=== PATIENT | female | born 2000 | race American Indian/Alaskan Native ===

== ENCOUNTER 2019-12-10 10:38 | Emergency (ER) | payer OTHER ==
--- NOTE | 2019-12-10 10:47 | Event Note ---
ED Screening Note ED Screening Note: vag bleed in preg This initial assessment/diagnostic orders/clinical plan/treatment(s) is/are subject to change based on patients health status, clinical progression and re- assessment by fellow clinical providers in the ED. Further treatment and workup at subsequent clinical providers discretion. Patient/guardian urged not to elope from the ED as their condition may be serious if not clinically assessed and managed. Initial orders include: omaira crabtree
[2019-12-10 12:27] LABS: Hematocrit 36.4 % (30.3-42.9); Hemoglobin 12.2 gm/dl (10.1-14.3); Mean Corpuscular HGB Conc 34 % (30-34); Mean Corpuscular Volume 85 fl (79-97); Platelet Count 321 K/mm3 (140-440); Red Blood Count 4.29 M/mm3 (3.65-5.03); Red Cell Distribution Width 15.8 % (13.2-15.2)
[2019-12-10 13:31] LABS: Bacteria,Urine 1+ /HPF (Negative); Bilirubin,Urine NEG (Negative); Blood,Urine LG (Negative); Color,Urine Yellow (Yellow); Mucus,Urine FEW /HPF; Protein,Urine <15 mg/dL mg/dL (Negative); Urobilinogen,Urine < 2.0 mg/dL (<2.0)
--- NOTE | 2019-12-10 13:36 | Emergency Department Report ---
ED Female HPI - General Chief complaint: Vaginal Bleeding Stated complaint: 5WKS PREG , BLEEDING Time Seen by Provider: 12/10/19 10:46 Source: patient Mode of arrival: Ambulatory Limitations: No Limitations - History of Present Illness Initial comments: 19 year old female presents to ED c/o vaginal bleeding. Patient reports that she is about 5 weeks based on her last MC which was October 30. Her first appointment is in 3 days. She states the bleeding started 3 days ago. She states initially it was light but then today was heavier with passage of single clot. She reports mild intermittent cramping for the past 3 days. She denies any abnormal discharge, abnormal passage of tissue, or UTI symptoms. She states she is rh negative. She is . She reports no other symptoms at this time. MD Complaint: vaginal bleeding -: days(s) (3) - Related Data Allergies Allergy/AdvReac Type Severity Reaction Status Date / Time No Known Allergies Allergy Unverified 12/10/19 10:39 ED Review of Systems ROS: Stated complaint: 5WKS PREG , BLEEDING Other details as noted in HPI Comment: All other systems reviewed and negative Constitutional: denies: chills, fever Gastrointestinal: abdominal pain. denies: nausea, vomiting, diarrhea, constipation, hematemesis, melena, hematochezia Genitourinary: other (vaginal bleeding) ED Past Medical Hx - Past Medical History Previous Medical History?: No - Surgical History Past Surgical History?: No - Social History Smoking Status: Never Smoker Substance Use Type: None ED Physical Exam - General Limitations: No Limitations General appearance: alert, in no apparent distress - Neck Neck exam: Present: normal inspection - Respiratory Respiratory exam: Present: normal lung sounds bilaterally. Absent: respiratory distress - GI/Abdominal GI/Abdominal exam: Present: soft, tenderness (mild LLQ without guarding or rebound). Absent: guarding, rebound - External exam: Present: normal external exam Speculum exam: Present: vaginal bleeding (mild ). Absent: vaginal discharge, cervical discharge, tissue, laceration Bi-manual exam: Present: adnexal tenderness (Left ). Absent: cervical motion tendernes, adnexal mass - Neurological Exam Neurological exam: Present: alert, oriented X3, CN II-XII intact - Psychiatric Psychiatric exam: Present: normal affect, normal mood - Skin Skin exam: Present: intact ED Course Vital Signs 12/10/19 12/10/19 12/10/19 10:41 13:21 15:02 Temperature 97.9 F 98.1 F Pulse Rate 67 57 L Respiratory 18 16 15 Rate Blood Pressure 131/43 104/43 O2 Sat by Pulse 100 100 Oximetry ED Medical Decision Making - Lab Data Result diagrams: 12/10/19 14:17 12/10/19 12:20 - Radiology Data Radiology results: report reviewed [facility] [address] [place] [address] Ultrasound Report Signed Patient: SANDY COHEN MR#: [id number] : 2000 Acct:[id number] Age/Sex: 19 / F ADM Date: 12/10/19 Loc: ED [address]: Ordering Physician: AL PENA Date of Service: 12/10/19 Procedure(s): US OB transvaginal Accession Number(s): [id number] cc: AL PENA Obstetrical ultrasound first trimester INDICATION: Vaginal bleeding and FINDINGS: A small gestational sac is present within the endometrial canal. A small yolk sac appears evident but no pole is identified at this time. The gestational sac measures about 5 mm which corresponds to 5 weeks and 2 days. The right ovary is normal. The left ovary measures 3.2 x 1.9 x 3.2 cm and contains a cystic 1.6 cm structure which may represent a corpus luteal cyst. No significant free pelvic fluid. IMPRESSION: Early intrauterine gestational sac without pole at this time. There does appear to be a small implant/subchorionic bleed measuring about 2.7 x 0.6 mm. Close ultrasound follow-up is suggested. Signer Name: Berhane Mcdaniels MD Signed: 12/10/2019 3:08 PM Workstation Name: [id number] Transcribed By: BC Dictated By: Berhane Mcdaniels MD Electronically Authenticated By: Berhane Mcdaniels MD Signed Date/Time: 12/10/19 1508 DD/ 1505 TD/TT: - Medical Decision Making Patient resting comfortably. No acute distress. She reported no worsening bleeding during her stay. Labs reviewed as well as ultrasound report. Quant measured at 442. Ultrasound shows a 5-week 2-day intrauterine gestational sac, no pole at this time, there is a small implantation/subchorionic bleed and radiologist recommend close ultrasound follow-up. Patient did get a RhoGam i njection today. Discussed lab results as well as ultrasound results with patient. Also discussed suspected diagnosis and tx plan. She has an appointment on the second which I recommend that she keeps. She was given a copy of the ultrasound results as well as a quant. Instructed patient to rest until her appointment, no sexual activity or strenuous activity. Informed patient that if her symptoms worsened and to return to the ER. Critical care attestation.: If time is entered above; I have spent that time in minutes in the direct care of this critically ill patient, excluding procedure time. ED Disposition Clinical Impression: Threatened miscarriage in early Disposition: DC-01 TO HOME OR SELFCARE Is pt being admited?: No Does the pt Need Aspirin: No Condition: Stable Instructions: Threatened Miscarriage (ED) Additional Instructions: Keep your appointment with OBGYN this week. I recommend rest, no sexual contact or strenous activity. I recommend tylenol for any pain. Return to ED if worse. Forms: Work/School Release Form(ED) Time of Disposition: 15:29
[2019-12-10 14:34] LABS: Basophils % (Auto) 0.7 % (0.0-1.8); Eosinophils # (Auto) 0.2 K/mm3 (0.0-0.4); Eosinophils % (Auto) 4.4 % (0.0-4.3); Hematocrit 37.6 % (30.3-42.9); Hemoglobin 12.4 gm/dl (10.1-14.3); Lymphocytes # (Auto) 1.8 K/mm3 (1.2-5.4); Lymphocytes % (Auto) 35.5 % (13.4-35.0); Mean Corpuscular HGB Conc 33 % (30-34); Mean Corpuscular Volume 83 fl (79-97); Monocytes # (Auto) 0.3 K/mm3 (0.0-0.8); Monocytes % (Auto) 6.8 % (0.0-7.3); Platelet Count 321 K/mm3 (140-440)
[2019-12-10 14:48] LABS: BUN/Creatinine Ratio 11; Blood Urea Nitrogen 8 mg/dL (7-17); Calcium 9.4 mg/dL (8.4-10.2); Hemolysis Index 3
[2019-12-10 14:48] LABS: Alanine Aminotransferase 17 units/L (7-56); Albumin 4.2 g/dL (3.9-5)
[2019-12-10 14:57] LABS: Bilirubin,Direct < 0.2 mg/dL (0-0.2)
[2019-12-10 15:08] VITALS: BP 104/43
--- NOTE | 2019-12-10 15:12 | Ultrasound Report ---
Obstetrical ultrasound first trimester INDICATION: Vaginal bleeding and FINDINGS: A small gestational sac is present within the endometrial canal. A small yolk sac appears e vident but no pole is identified at this time. The gestational sac measures about 5 mm which co rresponds to 5 weeks and 2 days. The right ovary is normal. The left ovary measures 3.2 x 1.9 x 3.2 c m and contains a cystic 1.6 cm structure which may represent a corpus luteal cyst. No significant ramila e pelvic fluid. IMPRESSION: Early intrauterine gestational sac without pole at this time. There does appear to be a small implant/subchorionic bleed measuring about 2.7 x 0.6 mm. Close ultrasound follow-up is sug gested. Signer Name: Berhane Mcdaniels MD Signed: 12/10/2019 3:08 PM Workstation Name: [id number]
== END 2019-12-10 15:36 | disposition home or self-care (01) ==
LOC: ED 10:38
DX: O20.0 Threatened abortion (principal); Z3A.01 Less than 8 weeks gestation of pregnancy
CPT/HCPCS: 36415; 36430; 76801; 76817; 80048; 80076; 81001; 84702; 85025; 85027; 86850; 86900; 86901; 87086; 87210; 87591; 99284; J2790